=== PATIENT | male | born 1995 | race Caucasian/White ===

== ENCOUNTER 2020-04-24 15:18 | Emergency (ER) | payer MEDICAID ==
[~2020-04-24] VITALS: Ht 185.4 cm; Wt 118.2 kg
[2020-04-24 18:00] VITALS: BP 135/89
== END 2020-04-24 18:05 | disposition home or self-care (01) ==
LOC: EMS 15:21
DX: L29.9 Pruritus, unspecified (principal); F12.90 Cannabis use, unspecified, uncomplicated; F15.90 Other stimulant use, unspecified, uncomplicated; Z90.49 Acquired absence of other specified parts of digestive tract
CPT/HCPCS: Z7502

== ENCOUNTER 2022-04-18 18:19 | Emergency (ER) | payer MEDICAID, OTHER ==
[~2022-04-18] VITALS: Ht 185.4 cm; Wt 109.1 kg
[2022-04-18 20:20] LABS: COVID AG,FIA SOURCE NASOPHARYNGEAL
[2022-04-18 20:28] VITALS: BP 135/78
== END 2022-04-18 21:00 | disposition left against medical advice (07) ==
LOC: EMS 18:21
DX: J02.9 Acute pharyngitis, unspecified (principal); F12.90 Cannabis use, unspecified, uncomplicated; F15.90 Other stimulant use, unspecified, uncomplicated; F17.210 Nicotine dependence, cigarettes, uncomplicated; Z20.822 Contact with and (suspected) exposure to COVID-19
CPT/HCPCS: 99283

== ENCOUNTER 2023-02-19 21:33 | Emergency (ER) | payer OTHER ==
[~2023-02-19] VITALS: Ht 185.4 cm; Wt 104.0 kg
[2023-02-19] MEDS ORDERED: LIDOCAINE 1% 10 ML VIAL SQ ONE (22:15)
[2023-02-19] MEDS ORDERED: BACITRACIN 0.9 GM PACKET OINTMENT TP ONE (22:15)
[2023-02-19] MEDS: PERTUSS(ACELL),DIPH,TET VAC/PF 0.5 ML SYRINGE IM. ONE ×2 (22:19→22:26)
[2023-02-19 22:45] VITALS: BP 124/66
== END 2023-02-19 23:00 | disposition home or self-care (01) ==
LOC: EMS 21:36
DX: S81.012A Laceration without foreign body, left knee, initial encounter (principal); F17.210 Nicotine dependence, cigarettes, uncomplicated; F12.90 Cannabis use, unspecified, uncomplicated; F15.90 Other stimulant use, unspecified, uncomplicated; Z90.49 Acquired absence of other specified parts of digestive tract; W19.XXXA Unspecified fall, initial encounter; Y93.89 Activity, other specified; Y92.89 Other specified places as the place of occurrence of the external cause; Y99.8 Other external cause status
CPT/HCPCS: 99282; 90715; 12001; J3490

== ENCOUNTER 2023-02-23 17:18 | Emergency (ER) | payer OTHER ==
[~2023-02-23] VITALS: Ht 180.3 cm; Wt 100.0 kg
[2023-02-23 17:23] VITALS: BP 124/64
== END 2023-02-23 17:47 | disposition home or self-care (01) ==
LOC: EMS 17:18
DX: S81.012D Laceration without foreign body, left knee, subsequent encounter (principal); F17.210 Nicotine dependence, cigarettes, uncomplicated; F12.90 Cannabis use, unspecified, uncomplicated; F15.90 Other stimulant use, unspecified, uncomplicated; Z90.49 Acquired absence of other specified parts of digestive tract; X58.XXXD Exposure to other specified factors, subsequent encounter
CPT/HCPCS: 99281; Z7502

== ENCOUNTER 2023-03-02 14:55 | Emergency (ER) | payer OTHER ==
[~2023-03-02] VITALS: Ht 185.4 cm; Wt 100.0 kg
[2023-03-02 17:42] VITALS: BP 146/68
== END 2023-03-02 17:42 | disposition home or self-care (01) ==
LOC: EMS 14:55
DX: S81.012D Laceration without foreign body, left knee, subsequent encounter (principal); F17.210 Nicotine dependence, cigarettes, uncomplicated; F12.90 Cannabis use, unspecified, uncomplicated; F15.90 Other stimulant use, unspecified, uncomplicated; Z90.49 Acquired absence of other specified parts of digestive tract; X58.XXXD Exposure to other specified factors, subsequent encounter
CPT/HCPCS: 99281; Z7502

== ENCOUNTER 2024-01-21 15:10 | Emergency (ER) | payer OTHER ==
[~2024-01-21] VITALS: Ht 182.9 cm; Wt 102.3 kg
[2024-01-21 15:15] VITALS: TEMP 98.5
[2024-01-21 18:55] VITALS: BP 127/80; PULSE 80; RESP 18
[2024-01-21] MEDS ORDERED: METH-812 PO (19:21)
[2024-01-21] MEDS ORDERED: ACET-66 PO (19:21)
[2024-01-21] MEDS ORDERED: IBUP-1493 PO (19:21)
== END 2024-01-21 19:26 | disposition home or self-care (01) ==
LOC: EMS 15:10
DX: S39.012A Strain of muscle, fascia and tendon of lower back, initial encounter (principal); F17.210 Nicotine dependence, cigarettes, uncomplicated; F12.90 Cannabis use, unspecified, uncomplicated; F15.90 Other stimulant use, unspecified, uncomplicated; Z90.49 Acquired absence of other specified parts of digestive tract; X50.9XXA Other and unspecified overexertion or strenuous movements or postures, initial encounter; Y93.89 Activity, other specified; Y92.89 Other specified places as the place of occurrence of the external cause; Y99.8 Other external cause status
CPT/HCPCS: 99283; Z7502

== ENCOUNTER 2024-07-06 08:41 | Emergency (ER) | payer OTHER ==
[~2024-07-06] VITALS: Ht 175.3 cm; Wt 100.0 kg
[~2024-07-06 08:41] MED LIST: ACET-66 PO; IBUP-1493 PO; METH-812 PO
[2024-07-06 08:48] VITALS: TEMP 97.5
[2024-07-06] MEDS: ACETAMINOPHEN 500 MG TABLET PO ONE (09:54)
[2024-07-06 11:15] VITALS: BP 124/64; PULSE 75; RESP 14; O2SAT 98
== END 2024-07-06 11:18 | disposition home or self-care (01) ==
LOC: EMS 08:41
DX: S83.92XA Sprain of unspecified site of left knee, initial encounter (principal); F12.90 Cannabis use, unspecified, uncomplicated; F15.90 Other stimulant use, unspecified, uncomplicated; Z90.49 Acquired absence of other specified parts of digestive tract; X58.XXXA Exposure to other specified factors, initial encounter; Y93.89 Activity, other specified; Y92.89 Other specified places as the place of occurrence of the external cause; Y99.8 Other external cause status
CPT/HCPCS: 99284; 73562-TC; 73590-TC; Z7502; Z7610

== ENCOUNTER 2024-07-12 13:59 | Emergency (ER) | payer OTHER ==
[~2024-07-12] VITALS: Ht 175.3 cm; Wt 100.0 kg
[2024-07-12 14:10] VITALS: BP 134/57; PULSE 67; RESP 18; TEMP 97.9; O2SAT 99
== END 2024-07-12 15:48 | disposition home or self-care (01) ==
LOC: EMS 13:59
DX: S83.92XA Sprain of unspecified site of left knee, initial encounter (principal); F12.90 Cannabis use, unspecified, uncomplicated; F15.90 Other stimulant use, unspecified, uncomplicated; F17.210 Nicotine dependence, cigarettes, uncomplicated; Z90.49 Acquired absence of other specified parts of digestive tract; Z98.890 Other specified postprocedural states; X50.0XXA Overexertion from strenuous movement or load, initial encounter; Y93.89 Activity, other specified; Y92.89 Other specified places as the place of occurrence of the external cause; Y99.8 Other external cause status
CPT/HCPCS: 99281; Z7502

== ENCOUNTER 2024-07-31 06:46 | Emergency (ER) | payer OTHER ==
[~2024-07-31] VITALS: Ht 175.3 cm; Wt 100.5 kg
[2024-07-31 06:55] VITALS: BP 113/61; PULSE 65; RESP 18; TEMP 98.5; O2SAT 99
[2024-07-31] MEDS: BACITRACIN 0.9 GM PACKET OINTMENT TP ONE (07:55)
[2024-07-31] MEDS: DOXYCYCLINE HYCLATE 100 MG TABLET PO ONE (07:55)
[2024-07-31] MEDS: ACETAMINOPHEN 500 MG TABLET PO ONE (07:55)
[2024-07-31] MEDS: PERTUSS(ACELL),DIPH,TET/PF 0.5 ML SYRINGE [ADULT] IM. ONE (07:56)
[2024-07-31] MEDS ORDERED: BACI28.410 TP (08:55)
[2024-07-31] MEDS ORDERED: DOXY-354 PO (08:55)
[2024-07-31] MEDS ORDERED: ACET-3385 PO (09:08)
== END 2024-07-31 09:17 | disposition home or self-care (01) ==
LOC: EMS 06:48
DX: S90.112A Contusion of left great toe without damage to nail, initial encounter (principal); Z90.49 Acquired absence of other specified parts of digestive tract; W22.09XA Striking against other stationary object, initial encounter; Y93.01 Activity, walking, marching and hiking; Y92.89 Other specified places as the place of occurrence of the external cause; Y99.8 Other external cause status
CPT/HCPCS: 90471; 90715; 99284

== ENCOUNTER 2025-02-03 17:28 | Emergency (ER) | payer OTHER ==
[~2025-02-03] VITALS: Ht 180.3 cm; Wt 92.7 kg
[~2025-02-03 17:28] MED LIST changes: +ACET-3385 PO; -ACET-66 PO; +BACI28.410 TP; +DOXY-354 PO; -IBUP-1493 PO; -METH-812 PO
[2025-02-03 17:33] VITALS: BP 132/73; PULSE 78; RESP 18; TEMP 98; O2SAT 99
== END 2025-02-03 18:51 | disposition home or self-care (01) ==
LOC: EMS 17:29
DX: S83.92XA Sprain of unspecified site of left knee, initial encounter (principal); Z90.49 Acquired absence of other specified parts of digestive tract; V00.131A Fall from skateboard, initial encounter; Y93.51 Activity, roller skating (inline) and skateboarding; Y92.89 Other specified places as the place of occurrence of the external cause; Y99.8 Other external cause status
CPT/HCPCS: 99283

== ENCOUNTER 2025-06-07 04:26 | Emergency (ER) | payer MEDICAID, OTHER ==
[~2025-06-07] VITALS: Ht 185.4 cm; Wt 89.1 kg
[2025-06-07 04:46] VITALS: BP 141/66; PULSE 84; RESP 18; TEMP 98.6; O2SAT 100
[2025-06-07] MEDS ORDERED: AMOX250C4 PO (05:24)
== END 2025-06-07 05:46 | disposition home or self-care (01) ==
LOC: EMS 05:37
DX: L03.012 Cellulitis of left finger (principal); Z90.49 Acquired absence of other specified parts of digestive tract; Z98.890 Other specified postprocedural states; Z87.891 Personal history of nicotine dependence; Z79.899 Other long term (current) drug therapy
CPT/HCPCS: 10060; 99283

== ENCOUNTER 2025-06-07 04:37 | Emergency (ER) | payer MEDICAID, OTHER ==
[2025-06-07] MEDS ORDERED: AMOX250C4 PO (05:24)
== END 2025-06-07 05:50 | disposition left against medical advice (07) ==
LOC: EMS 05:50
DX: M79.89 Other specified soft tissue disorders (principal); Z53.21 Procedure and treatment not carried out due to patient leaving prior to being seen by health care provider